=== PATIENT | female | born 1950 | race Caucasian/White ===

== ENCOUNTER 2018-11-01 10:22 | Inpatient (IN) | payer OTHER ==
[~2018-11-01 10:22] MED LIST: POVIDONE-IODINE 20 ML in SODIUM CL IRRIG SOLUTION 500 ML IRR ONE; ROPIVACAINE 0.2% 80 MG, EPINEPHrine 0.2 MG, KETOROLAC TROMETHAMINE 30 MG in SYRINGE 0 ML IU ONE; TRANEXAMIC ACID 1,000 MG in NS 100 ML IV ONE; TRANEXAMIC ACID 3,000 MG in NS (SYRINGE) 50 ML IRR ONE
[2018-11-01] MEDS ORDERED: TRANEXAMIC ACID 3,000 MG/50 ML BAG IRR ONE (11:14)
[2018-11-01] MEDS ORDERED: ceFAZolin 1 GM/5 ML SYR ONE (11:15)
[2018-11-01] MEDS ORDERED: DEXAMETHASONE 4 MG/ML VIAL IVP ONE (12:37)
[2018-11-01] MEDS ORDERED: ceFAZolin 2 GM/DEXTROSE 100 ML IV ONE (12:37)
[2018-11-01] MEDS ORDERED: ACETAMINOPHEN 325 MG TAB PO ONE (12:37)
[2018-11-01] MEDS ORDERED: GABAPENTIN 300 MG CAP PO ONE (12:37)
[2018-11-01] MEDS ORDERED: ONDANSETRON 4 MG/2 ML VIAL IVP ONE (12:37)
[2018-11-01] MEDS ORDERED: FAMOTIDINE 20 MG TAB PO ONE (12:37)
[2018-11-01] MEDS ORDERED: LR 1,000 ML IV ONE (12:38)
[2018-11-01] MEDS ORDERED: LIDOCAINE 1% 2 ML INJ ID PRN (12:38)
--- NOTE | 2018-11-01 12:50 | PDHPUP ---
History & Physical Update H&P update statement: This history and physical update is based on an assessment of the patient which was completed after admission or registration (within 24 hours), but prior to the surgery/procedure. H&P update: H&P reviewed & patient examined
--- NOTE | 2018-11-01 13:25 | PDANEPAE ---
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 - Neurologic History Hx Cerebrovascular Accident: No Hx Seizures: No Hx Dementia: No Neurologic History Comment: MIGRAINES IN PAST - Endocrine History Hx Diabetes: No - Renal History Hx Renal Disorders: No - Liver History Hx Hepatic Disorders: No - Neurological & Psychiatric Hx Hx Neurological and Psychiatric Disorders: No - Cancer History Hx Cancer: No - Congenital Disorder History Hx Congenital Disorders: No - GI History Hx Gastrointestinal Disorders: Yes Gastrointestinal History Comment: ULCERS MANY YRS AGO - Other Health History Other Health History: NEG - Chronic Pain History Chronic Pain: Yes (L HIP,LOW BACK) - Surgical History Prior Surgeries: BREAST REDUCTION. R ANKLE REPAIR. L KNEE REPAIR. R ANKLE HW REMOVAL. JAQUELIN CARPAL TUNNEL ANE Review of Systems Review of Systems: - Exercise capacity METS (RN): 5 METS ANE Patient History - Allergies Allergies/Adverse Reactions: Penicillins Allergy (Verified 10/26/18 11:46) Unknown - Home Medications Home Medications: Acetaminophen [Tylenol 325mg (*)] 325 mg PO Q6HRS PRN 10/26/18 [Last Taken 10/31] Aspirin [Aspirin 81mg (*)] 81 mg PO HS 10/26/18 [Last Taken 10/18/18] Herbals/Supplements -Info Only 1 ea PO DAILY 10/26/18 [Last Taken 10/25/18] Hydrocodone/APAP 5/325 [[place] 5/325 (*)] 1 each PO DAILY PRN 10/26/18 [Last Taken Unknown] Meloxicam 15 mg PO DAILY PRN 10/26/18 [Last Taken 10/25/18] Rizatriptan Benzoate [Maxalt] 10 mg PO DAILY PRN 10/26/18 [Last Taken 10/31/18] Zolpidem Tartrate [Ambien 5MG (*)] 5 mg PO HS PRN 10/26/18 [Last Taken 10/31/18] traMADol [Ultram 50 mg (*)] 50 mg PO HS PRN 10/26/18 [Last Taken 10/30/18] - NPO status NPO Status: no food or drink >8 hours NPO Since - Liquids (Date): 11/01/18 NPO Since - Liquids (Time): 08:30 NPO Since - Solids (Date): 10/31/18 NPO Since - Solids (Time): 14:00 - Anes Hx Anes Hx: no prior problems - Smoking Hx Smoking Status: Never smoked - Alcohol Use Alcohol Use: Occasionally - Family Anes Hx Family Anes Hx: none Family Hx Anesthesia Complications: NEG ANE Labs/Vital Signs - Vital Signs Blood Pressure: 154/93 Heart Rate: 86 Respiratory Rate: 16 O2 Sat (%): 94 Height: 162.56 cm Weight: 72.575 kg ANE Physical Exam - Airway Neck exam: FROM Mallampati Score: Class 2 Mouth exam: normal dental/mouth exam - Pulmonary Pulmonary: no respiratory distress, clear to auscultation - Cardiovascular Cardiovascular: regular rate and rhythym, no murmur, rub, or gallop - ASA Status ASA Status: II ANE Anesthesia Plan Anesthesia Plan: GA with mask, spinal Total IV Anesthesia: Yes
[2018-11-01] MEDS ORDERED: MIDAZOLAM 2 MG/2 ML VIAL IVP ONE (13:26)
[2018-11-01] MEDS ORDERED: MIDAZOLAM 2 MG/2 ML VIAL ONE (13:27)
[2018-11-01] MEDS ORDERED: PROPOFOL/EMULSION 500 MG/50 ML BOTTLE IV ONE ×2 (13:31→14:28)
[2018-11-01] MEDS ORDERED: HYDROmorphONE/DILAUDID 1 MG/ML INJ IVP PRN (14:17)
[2018-11-01] MEDS ORDERED: HYDROCODONE/APAP 5/325 TAB PO PRN (14:17)
[2018-11-01] MEDS ORDERED: DIAZEPAM 5 MG/ML 1 ML SYR IVP PRN (14:17)
[2018-11-01] MEDS ORDERED: oxyCODONE IR 5 MG TAB PO PRN (14:17)
[2018-11-01] MEDS ORDERED: ACETAMINOPHEN 500 MG TAB PO PRN (14:17)
[2018-11-01] MEDS ORDERED: NALOXONE HCL 0.4 MG/ML INJ IVP PRN (14:17)
[2018-11-01] MEDS ORDERED: ONDANSETRON 4 MG/2 ML VIAL IVP PRN ×2 (14:17→15:13)
[2018-11-01] MEDS ORDERED: fentaNYL 100 MCG/2 ML INJ IVP PRN (14:17)
--- NOTE | 2018-11-01 14:58 | POSTOPPROG ---
Post Op Note Date of Operation: 11/01/18 Surgeon: Jonah Harley Lumber Scaler: Josh Anesthesiologist: Isabel Anesthesia: IV Sedation, Spinal Pre-op Diagnosis: Left hip severe degenerative arthritis Procedure: Left total hip arthroplasty Inf/Abcess present in the surg proc area at time of surgery?: No EBL: 50-100
[2018-11-01] MEDS ORDERED: ZOLPIDEM TARTRATE 5 MG TAB PO PRN (15:10)
[2018-11-01] MEDS ORDERED: Rizatriptan Benzoate [Maxalt] 10 MG PO PRN (15:10)
--- NOTE | 2018-11-01 15:12 | POSTANESTH ---
Post Anesthetic Evaluation Cardiovascular Status: Normal, Stable, Similar to Pre-Op Cond Respiratory Status: Normal, Stable, Similar to Pre-op Cond. Level of Consciousness/Mental Status: Can Participate in Eval, Alert and Oriented Pain Control: Adequate, Prn Tx Ordered Nausea/Vomiting Control: Adequate, Prn Tx Ordered Complications Possibly Related to Anesthesia: None Noted
[2018-11-01] MEDS ORDERED: traMADol 50 MG TAB PO PRN (15:13)
[2018-11-01] MEDS ORDERED: diphenhydrAMINE 25 MG CAP PO PRN (15:13)
[2018-11-01] MEDS ORDERED: PROMETHAZINE HCL 25 MG/ML INJ IVP PRN (15:13)
[2018-11-01] MEDS ORDERED: PROMETHAZINE HCL 25 MG SUPPR PR PRN (15:13)
[2018-11-01] MEDS ORDERED: ONDANSETRON DISINTEGRATING 4 MG TAB PO PRN (15:13)
[2018-11-01] MEDS ORDERED: POLYETHYLENE GLYCOL 3350 17 GM PKT PO PRN (15:13)
[2018-11-01] MEDS ORDERED: NS 500 ML IV PRN (15:13)
[2018-11-01] MEDS ORDERED: DIPHENOXYLATE/ATROPINE LOMOTIL 1 TAB PO PRN (15:13)
[2018-11-01] MEDS ORDERED: MAGNESIUM HYDROXIDE 30 ML UDCUP PO PRN (15:13)
[2018-11-01] MEDS ORDERED: BISACODYL 10 MG SUPP PR PRN (15:13)
[2018-11-01] MEDS ORDERED: CYCLOBENZAPRINE 10 MG TAB PO PRN (15:13)
[2018-11-01] MEDS ORDERED: LACTULOSE 20 GM/30 ML UDCUP PO PRN (15:13)
[2018-11-01] MEDS ORDERED: METOCLOPRAMIDE 10 MG/2 ML VIAL IVP PRN (15:13)
--- NOTE | 2018-11-01 15:43 | PDMN ---
Medical Necessity Medical necessity: Pt meets inpt criteria per MD order and [facility] [id number], Hip Arthroplasty, [facility] IP only list, A-2 days, 68 y/o w/severe L hip degenerative arthritis admitted for L DARRIN and post-op care, AUTH# [id number] APPROVED FOR CPT 33821 DONE INPNT LOS 1 DAY.
[2018-11-01] MEDS: LR 1,000 ML IV SCH (17:03)
[2018-11-01] MEDS: KETOROLAC 15 MG/1 ML SDV IVP SCH ×2 (17:28→23:13)
[2018-11-01] MEDS: SENNOSIDES/DOCUSATE SODIUM TAB PO SCH (20:34)
[2018-11-01] MEDS: FAMOTIDINE 20 MG TAB PO SCH (20:34)
[2018-11-01] MEDS: ACETAMINOPHEN 325 MG TAB PO SCH (20:34)
[2018-11-01] MEDS: oxyCODONE IR 5 MG TAB PO PRN (20:41)
[2018-11-01] MEDS: ceFAZolin 2 GM/DEXTROSE 100 ML IV SCH (22:15)
--- NOTE | 2018-11-01 23:16 | GOP ---
[f rep st] OPERATIVE REPORT DATE OF OPERATION: 11/01/2018 SURGEON: Jonah Harley MD ABATTOIR SUPERVISOR: Rashi Jorge, PAC and Guzman Bradley CFA. ANESTHESIA: Combination of Marcaine, spinal, and IV sedation. ANESTHESIOLOGIST: Dr. Rafael Hall. PREOPERATIVE DIAGNOSIS: Left hip severe degenerative arthritis. POSTOPERATIVE DIAGNOSIS: Left hip severe degenerative arthritis. PROCEDURE PERFORMED: Left total hip arthroplasty, ceramic femoral head on highly cross-link polyethy jayesh cup liner. FINDINGS: DESCRIPTION OF PROCEDURE: The patient was given 2 g of IV Ancef preoperatively within 60 minutes of surgery. She also received 1000 mg of IV tranexamic acid preoperatively. She was placed on the oper ating room table and given spinal anesthesia with Marcaine by Dr. Hall. She was then placed supine and given IV sedation. A Mason catheter was not used. She was rolled to the right lateral decubitus position. The position was secured with the pegboard table attachment. An axillary roll was used, and all pressure points were carefully padded. I was careful to lock her pelvis in a rigid vertical position. Her perineum was isolated with plastic adhesive drapes. The left hip and left lower extre mity were prepped with ChloraPrep. They were draped free using sterile sheets, stockinette, and Ioba n plastic drape. The [employer] time-out was performed to verify the correct patient identity and the correct surgical side and site. The [place] time-out was also performed. I made a 5-inch straight oblique posterolateral hip skin incision. The subcutaneous tissues were sha rply divided, and hemostasis was obtained using electrocautery. Her fascia arian was identified and s plit along the axis of its fibers. I curved posteriorly and proximally, and split the fascia of the gluteus obey and bluntly split the muscle fibers in line with their orientation. The Charnley carmen f-retaining retractor was inserted. Her sciatic nerve was located, partially exposed, and protected throughout the procedure. The external rotators and the posterior hip capsule were divided as separa te layers at the base of the femoral neck, tagged, and reflected posteriorly. A smooth 8-inch Steinm lurdes pin was inserted vertically into the ilium, superior to the acetabulum. An 8-inch drill bit was inserted vertically into the greater trochanter and parallel to the first pin. The distance between the 2 was measured for leg length reference. Her femoral head was dislocated posteriorly. Severe de generative changes were present on the femoral head. The femoral neck was osteotomized at the approp riate level and inclination. I was careful to preserve all the posterior capsule and most of the anterior capsule. The remnant of her damaged labrum was excised. I prepared the femur first. This allowed me to form worker the amount of natural femoral neck anteversion. This, in turn, allowed me to later determine the correct amount of cup anteversion. She had approx imately 15 degrees of natural femoral neck anteversion. The canal was opened laterally with a box ch obed. I started with the starter broach on power. I then hand broached sequentially up to size 5 Ac colate II broach as a trial stem. I was careful to lateralize adequately. Appropriate retractors were inserted to expose the acetabulum. The acetabulum was reamed sequentiall y up to 52 mm. I selected the 52 mm Khalif Titanium Trident II cluster hole hemispherical shell. T his was tapped securely into place at the proper degree of inclination and anteversion. I used the t ransverse acetabular ligament and other acetabular bony landmarks to help me properly orient the cup. The fit was tight and supplemental screws were not necessary. I performed a series of trial reductions to determine length and stability. I obtained an intraopera tive cross-table AP pelvis x-ray. I concluded that the size 5 high offset stem with a 0 neck length with a 36 mm head and a 0 degree trial liner gave me the proper combination of appropriate length and good anterior and posterior stability. Her leg lengths were equal preoperatively and I was trying t o avoid lengthening her. The 0 degree Khalif X3 highly cross-linked polyethylene liner was inserted and tapped securely into place. The Khalif Accolade II stem in size 5 with high offset was inserted press-fit and was very t ight. I did 1 final trial reduction and confirmed that the 0 neck length with a 36 mm head was the p shauna combination. The Khalif Biolox Delta ceramic head with an outside diameter of 36 mm and a nec k length of 0 mm was tapped securely onto the clean trunnion. Her acetabulum was irrigated, cleaned, and the hip was reduced 1 final time. She had excellent anterior and posterior stability and approp riate length. 40 cc of the joint anesthetic cocktail were injected into the capsule, the deep musculature, and the subcutaneous tissues along the skin edges. The joint was thoroughly irrigated 1 final time with dilu te Betadine solution. Her sciatic nerve was reinspected and looked unharmed. 50 cc of tranexamic ac id solution were irrigated into the wound. The external rotators and the posterior hip capsule were repaired in separate layers with #2 FiberWire sutures through drill holes in the greater trochanter. This provided a strong posterior capsular and external rotator repair. Her fascia arian was closed f irst with 2 interrupted [id number] #2 FiberWire sutures, followed by a running #2 barbed Ethicon Stratafix PDO suture. The subcutaneous tissues were closed in layers beginning with interrupted 2-0 Monocryl sutures, followed by a running 0 barbed Ethicon Stratafix Monoderm suture. The skin was cl osed with a running 3-0 barbed Ethicon Stratafix Monoderm subcuticular suture. The skin edges were r eapproximated and sealed with Dermabond glue. The wound was covered with a large Mepilex waterproof dressing. The sacral Mepilex dressing was applied. A long-leg BALBINA stocking and SCD were applied to her left lower extremity. She wore a stocking and SC D on the opposite leg during the procedure. An abduction pillow was placed between her knees. She w as awakened from anesthesia and rolled to the supine position on her [facility]. She was taken to PACU in satisfactory condition. There were no recognized intraoperative complications. The estimated blood loss was about 300 mL. The sponge and needle counts were correct on 2 occasions. I used a [place] Trident II Tritanium hemispherical cluster hole acetabular shell with an outside anoop meter of 54 mm. The liner was a Khalif X3 0-degree highly cross-linked liner with an inside diamete r of 36 mm. The femoral component was a high offset Accolade II stem in size 5 and press-fit. The f emoral head was a Khalif Biolox Delta ceramic head with a 0 neck length and a 36 mm outside diameter . Darren Jorge and Guzman Bradley acted as surgical assistants. Their assistance was a medical necess ity for safe completion of the procedure. Copy requested to: Dr. César Araiza [facility] [place] /[id number]/MODL
[2018-11-02] MEDS: ACETAMINOPHEN 325 MG TAB PO SCH ×2 (03:54→08:14)
[2018-11-02] MEDS: LR 1,000 ML IV SCH (04:59)
[2018-11-02] MEDS: ceFAZolin 2 GM/DEXTROSE 100 ML IV SCH (04:59)
[2018-11-02] MEDS: KETOROLAC 15 MG/1 ML SDV IVP SCH ×2 (05:00→11:12)
[2018-11-02] MEDS: SENNOSIDES/DOCUSATE SODIUM TAB PO SCH (08:14)
[2018-11-02] MEDS: FAMOTIDINE 20 MG TAB PO SCH (08:14)
[2018-11-02] MEDS ORDERED: ENOXAPARIN 40 MG/0.4 ML SYR SC SCH (09:00)
--- NOTE | 2018-11-02 09:22 | SOAPPROG ---
SOAP Progress Note Assessment/Plan: Assessment: Afebrile. Mild pain. Up and walking in room. H/H is good. Dsg is dry. Films look good. Sciatic nerve intact. Plan: Up with PT. D/C later today. 11/02/18 09:21 Objective: Vital Signs Temp Pulse Resp BP Pulse Ox 36.8 C 76 18 126/82 H 93 11/02/18 07:42 11/02/18 07:42 11/02/18 07:42 11/02/18 07:42 11/02/18 07:42 Laboratory Results 11/02/18 04:30 11/01/18 11/02/18 11/03/18 05:59 05:59 05:59 Intake Total 1048 1002 Output Total 1600 Balance -552 1002 ICD10 Worksheet Patient Problems: Problems Problem Status Onset Osteoarthritis of left hip Acute
--- NOTE | 2018-11-02 10:27 | GDS ---
[f rep st] DISCHARGE SUMMARY ADMISSION DIAGNOSIS: Left hip severe degenerative arthritis. DISCHARGE DIAGNOSIS: Left hip severe degenerative arthritis. OPERATION PERFORMED: November 01, 2018, a left total hip arthroplasty. POSTOPERATIVE COMPLICATIONS: None. CONDITION ON DISCHARGE: Improved. DESCRIPTION OF HOSPITAL COURSE: The patient was admitted to the hospital on the morning of surgery. Her admission CBC was normal. The same day, under a combination of Marcaine, spinal, and IV sedatio n, she underwent a left total hip arthroplasty. Postoperatively, she was treated with multimodal DVT prophylaxis, including Lovenox. She has a history of previous DVT making her high risk for DVT. On the first postoperative day, hemoglobin and hematocrit were 11.0 and 33.8. She did not require any transfused blood. She was seen by Physical Therapy and made excellent progress with ambulation and s tairs. By the time of discharge, she was afebrile, her wound was clean and dry, and she was independ ent walking with a walker. DISPOSITION: The patient discharged to her home. She will go to outpatient physical therapy. She m ay progress to full weightbearing on the left as tolerated. Use an abduction pillow in bed for 3 wee ks. Use BALBINA stockings for 1 week. Continue Lovenox 40 mg subcu daily for 21 days. I will see her b ack in the office on November 21, 2018. She has prescriptions for Celebrex, tramadol and oxycodone for pain control. Copy requested to: César Araiza Dr[facility], [place] /[id number]/MODL
--- NOTE | 2018-11-02 10:43 | ASMTLACE ---
LACE Length of stay for Answers: 2 days current admission Acuity / Level of Answers: Yes Care: Did the patient have an inpatient admission? Comorbidities - select Answers: Opioid dependence all that apply / Chronic pain Other Notes: DVT/PE # of Emergency department Answers: 0 visits in the last 6 months Score: 10 Date Signed: 11/02/2018 10:43 AM Electronically Signed By:RAMIREZ Guillen
--- NOTE | 2018-11-02 10:45 | ASMTCMCOM ---
CM Note CM Note Notes: Pt had planned hip surgery, has friends at assist in her recovery. PT and MD rec outpatient PT, no CM d/c needs identified. Date Signed: 11/02/2018 10:44 AM Electronically Signed By:RAMIREZ Guillen
[2018-11-02] MEDS: oxyCODONE IR 5 MG TAB PO PRN (11:17)
[2018-11-02 11:24] VITALS: BP 129/76
== END 2018-11-02 13:00 | disposition home or self-care (01) | DRG 470 ==
LOC: F3N 11:37
PROVIDERS: ADMIT Orthopaedic Surgery; ATTEND Orthopaedic Surgery
PROC: 0SRB04Z Replacement of Left Hip Joint with Ceramic on Polyethylene Synthetic Substitute, Open Approach (ICD-10-PCS; principal; 2018-11-01 13:45)
DX: M16.12 Unilateral primary osteoarthritis, left hip (principal); G43.909 Migraine, unspecified, not intractable, without status migrainosus; Z86.718 Personal history of other venous thrombosis and embolism; Z86.711 Personal history of pulmonary embolism; Z87.11 Personal history of peptic ulcer disease
CPT/HCPCS: 97110-GP; 97116-GP; 97161-GP; 97165-GO; 97535-GO; J0171; J0690; J1100; J1650; J1885; J2250; J2405; J2704; J2795